=== PATIENT | male | born 1985 ===

== ENCOUNTER 2021-08-26 21:19 | Emergency (ER) | payer SELFPAY ==
[2021-08-26 21:32] VITALS: BP 135/78; PULSE 76; RESP 18; TEMP 36.9; O2SAT 98; BMI 23.5
--- NOTE | 2021-08-27 02:43 | ED_ITS ---
HPI - Headache General Chief Complaint: Headache Stated Complaint: hx sinusitis, not geting better after antibiotics Time Seen by Provider: 08/27/21 02:41 Mode of arrival: Family Vehicle History of Present Illness HPI Narrative: 35-year-old gentleman presents with severe headache that he is concerned is worsening sinusitis. He describes pressure and pain behind his right eye and in the mid face in through to the middle of his brain. He describes no visual ch anges, no significant fevers he has had some nasal fullness. Was initially treated with 10 days of azithromycin and in the 1st 6 days notice significant improvement and then worsening again. He has not been using Sudafed or nasal flushes. He did use some saline nasal spray and has been using low-dose ibuprofen. Symptoms are worsening any comes in for further evaluation. He does not describe nausea vomiting abdominal pain diarrhea, chest pain, palpitations. He has had headaches that are getting worse. He has not complained of any other neurologic complaints such as paresthesias, weakness or ataxia. Related Data Previous Rx's Medication Instructions Recorded azithromycin 250 mg tablet See Rx Instructions PO .COMPLEX 08/15/21 #10 tab fluticasone propionate 50 1 spray INTRANASAL BID #16 g 08/15/21 mcg/actuation nasal spray,suspension doxycycline hyclate 100 mg tablet 100 mg PO BID #20 tab 08/27/21 prednisone 20 mg tablet 20 mg PO DAILY #5 tab 08/27/21 Allergies Allergy/AdvReac Type Severity Reaction Status Date / Time Penicillins [PENICILLINS] Allergy Unknown Verified 08/15/21 08:40 amoxicillin Allergy Hives Verified 08/26/21 21:41 Review of Systems Review of Systems Narrative: Remainder of complete review of systems is otherwise unremarkable except for that included in the HPI. Patient History Social History Smoking Status: Current every day smoker Smoking Status: Current every day smoker Substance Use Type: marijuana Exam Initial Vital Signs Initial Vital Signs: Vital Signs Temperature 98.5 F 08/26/21 21:32 Pulse Rate 76 08/26/21 21:32 Respiratory Rate 18 08/26/21 21:32 Blood Pressure 135/78 08/26/21 21:32 Pulse Oximetry 98 08/26/21 21:32 General: Healthy appearing, in no acute distress. Able to give a complete and coherent history. Well-nourished well-developed HEENT: Moist mucous membranes, mildly injected sclera with reactive pupils, tenderness to palpation over frontal and maxillary sinuses Neck: No JVD, supple Respiratory: Lungs are clear to auscultation, no wheezing no rales no rhonchi. Full and symmetrical air movement Cardiac: Regular rate and rhythm no murmurs no bruits Skin: Warm and dry, no rashes Neurologic: Grossly neurologically intact with no obvious asymmetries or abnormalities Psych: Cooperative, appropriate insight and affect Course Orders Ordered: ED Orders 08/27/21 02:55 CT sinus w con Stat Discontinued Medications Dexamethasone (Dexamethasone 10 Mg/Ml Vial) 10 mg IV NOW ONE Stop: 08/27/21 02:56 Last Admin: 08/27/21 03:20 Dose: 10 mg Documented by: ERIN Sodium Chloride (Normal Saline 0.9%) 1,000 mls @ 1,000 mls/hr IV BOLUS ONE Stop: 08/27/21 03:54 Last Admin: 08/27/21 03:20 Dose: 1,000 mls/hr Documented by: ERIN Ketorolac Tromethamine (Ketorolac 30 Mg/Ml Vial) 15 mg IV NOW ONE Stop: 08/27/21 02:56 Last Admin: 08/27/21 03:20 Dose: 15 mg Documented by: ERIN Metoclopramide HCl (Metoclopramide 10 Mg/2 Ml Inj) 10 mg IV NOW ONE Stop: 08/27/21 02:56 Last Admin: 08/27/21 03:20 Dose: 10 mg Documented by: ERIN Vital Signs Vital signs: Vital Signs - 8 hr 08/26/21 21:32 08/27/21 03:13 Temperature 98.5 F Pulse Rate 76 Respiratory Rate 18 Blood Pressure 135/78 138/85 Pulse Oximetry 98 MDM - Headache Imaging Data Sinus CT: Radiologist's Impression: Acute on chronic sinusitis with air-fluid level in the front right sinus and complete opacification of the right maxillary sinus and anterior aspect of the ethmoid air sinuses on the right. He has no enhancing mass. Orbits are normal. Mayo Dominguez MD [facility] Narrative Medical decision making narrative: 35-year-old gentleman with significant sinus fullness, fevers and persistent headache. He has been treated initially with 10 days of azithromycin is finding that his symptoms are worsening. Today,diagnosis of acute bacterial sinusitis is confirmed with CT imaging. There does not appear to be any abscess development and no retro orbital concerns for infection. Based On all the algrhythm for acute bacterial sinusitis treatment for in up-to-date I will have him complete a course of doxycycline forl 10 days. We also discussed using Sudafed to help with drainage. Ibuprofen and Tylenol to help pain control. Also recommended nasal until he is feeling significantly improved. MIPS Antibiotic use with Sinusitis The patient has sinusitis and antibiotics are prescribed at this time. Symptoms have been present and worsening for more than 10 days. Was prescribed a 3rd generation cephalosporin as well as clindamycin rather than amoxicillin due to penicillin allergy Discharge Plan Departure Patient Disposition: Home Clinical Impression: Acute bacterial sinusitis Instructions: DI for Sinusitis Activity Restrictions/Additional Instructions: Thank you for coming in today Based on your CT scan you have significant sinus infection in both frontal sinus es the right maxillary sinus as well as the right ethmoid sinus. This certainly explains the headache and the pain behind her right eye. Fortunately there does not appear to be any abscess developing or issues with infection behind the eyeball itself. In the emergency department you are given fluids, antibiotics, steroids and Toradol to help with pain all of which seem to have been beneficial. You need to complete 10 additional days of doxycycline, 100 mg twice a day. Using 400 mg of ibuprofen (2 [id number] pills) and 1 Tylenol every 6 hours can be very helpful in controlling pain. Sudafed, the kind that you need to ask the pharmacist for but do not need a prescription, will help sinuses drain as well. I am also going to have you take 20 mg of prednisone for the next 4 days to help with inflammation The prednisone and doxycycline have been electronically transmitted to [facility] and both should be started tomorrow morning. Finally and most important, you need to purchase a nasal lavage system. There are multiple brand names and these are relatively easy to find in grocery stores. Basically they help you physically rinse out your sinuses to allow for better drainage. If you find that your having worsening symptoms, fevers, confusion, worsening headaches you do need to return to the emergency department. I hope you feel better Prescriptions: New doxycycline hyclate 100 mg tablet 100 mg PO BID Qty: 20 0RF prednisone 20 mg tablet 20 mg PO DAILY Qty: 5 0RF No Action fluticasone propionate 50 mcg/actuation spray,suspension 1 spray intranasal BID Qty: 16 1RF Rx Instructions: administer into each nostril azithromycin 250 mg tablet See Rx Instructions PO .COMPLEX Qty: 10 0RF Rx Instructions: For 250 mg dose pack: take 500 mg today (day 1), then 250 mg for 8 days (days 2-9) PO Referrals: Deana Jeffrey PA-C [Primary Care Provider] -
--- NOTE | 2021-08-27 02:55 | DI.CT.S_ITS ---
PROCEDURE: CT SINUS W CON INDICATIONS: persistent sinus/mid brain pain TECHNIQUE: After the administration of intravenous contrast, 3.0 mm axial images acquired from the frontal sinuses to the mid-sella, with coronal and sagittal reformats. For radiation dose reduction, the following was used: automated exposure control, adjustment of mA and/or kV according to patient size. COMPARISON: None. FINDINGS: Image quality: Excellent. Mucosal thickening causes complete opacification of the right maxillary sinus and near complete opacification of the anterior right ethmoid air cells and the right frontal sinus. Mild mucosal thickening noted in the left maxillary sinus, anterior left ethmoid air cells in the left frontal sinus. The right ostiomeatal unit is opacified. No air-fluid levels are identified. Nasal septum is deviated to the left. Bone spur noted on the left margin of the nasal septum. No osseous thickening, osseous remodeling or osseous erosive changes. IMPRESSION: 1. Severe right maxillary, right ethmoid air cell and right frontal sinusitis. 2. Mild left maxillary, left anterior ethmoid and left frontal sinusitis. Dictated by: Jenni Pagan MD, PhD on 08/27/2021 at 7:20 Approved by: Jenni Pagan MD, PhD on 08/27/2021 at 7:23
[2021-08-27 03:13] VITALS: BP 138/85
[2021-08-27] MEDS: KETOROLAC 30 MG/ML VIAL 15 MG IV (03:20)
[2021-08-27] MEDS: DEXAMETHASONE 10 MG/ML VIAL IV (03:20)
[2021-08-27] MEDS: SODIUM CHLORIDE 0.9% 1,000 ML 1000 ML IV (03:20)
[2021-08-27] MEDS: METOCLOPRAMIDE 10 MG/2 ML INJ IV (03:20)
[2021-08-27] MEDS: cefTRIAXone 2,000 MG in SODIUM CHLORIDE 0.9% 100 ML 200 MG IV (04:42)
[2021-08-27] MEDS: methylPREDNISolone 125 MG/2 ML VIAL IV (04:42)
[2021-08-27 05:24] VITALS: BP 131/70; PULSE 78; RESP 16; O2SAT 98
== END 2021-08-27 05:26 | disposition home or self-care (01) ==
PROVIDERS: Emergency Provider Emergency Medicine; PCP Physician Assistant Medical
DX: J01.90 Acute sinusitis, unspecified (principal)
CPT/HCPCS: 36415; 70487; 96365; 96375; 99284; J0696; J1100; J1885; J2765; J2930